=== PATIENT | female | born 1955 | race Two or more races ===

== ENCOUNTER 2018-06-20 10:52 | Outpatient (CLI) | payer OTHER | END 2018-06-20 11:00 | disposition home or self-care (01) | LOC: SONOGRAMA 10:52 | DX: E04.0 Nontoxic diffuse goiter (principal) ==

== ENCOUNTER 2022-09-11 05:21 | Day surgery (SDC) | payer OTHER ==
[~2022-09-11] VITALS: Ht 172.7 cm; Wt 74.8 kg
[~2022-09-11 05:21] MED LIST: MULTIPLE VITAM1 EAC2 PO; PROBIOTIC250 MG PO; PROTONIX20 MG PO
[2022-09-11] MEDS ORDERED: TRAM1TAB98 PO (09:22)
[2022-09-11] MEDS ORDERED: NEURONTIN300 MG PO (09:22)
[2022-09-11] MEDS ORDERED: POLY119PG PO (09:22)
== END 2022-09-11 12:45 | disposition home or self-care (01) ==
LOC: CIR.AMB 05:21
PROVIDERS: ATTEND Surgery
DX: K40.90 Unilateral inguinal hernia, without obstruction or gangrene, not specified as recurrent (principal); Z20.822 Contact with and (suspected) exposure to COVID-19; Z87.891 Personal history of nicotine dependence
CPT/HCPCS: 49650; C1781